=== PATIENT | female | born 1980 | race African-American/Black ===

== ENCOUNTER 2018-07-19 22:01 | Emergency (ER) | payer SELFPAY ==
[~2018-07-19] VITALS: Ht 175.3 cm; Wt 145.1 kg
[2018-07-19 22:15] VITALS: BP 124/87
[2018-07-21 10:29] LABS: Hepatitis B Surface Antibody Negative
[2018-07-21 12:47] LABS: Hepatitis B Surface Antigen Negative (Negative)
== END 2018-07-20 00:56 | disposition left against medical advice (07) ==
LOC: ER 22:01
DX: S61.431A Puncture wound without foreign body of right hand, initial encounter (principal); M79.671 Pain in right foot; Z53.21 Procedure and treatment not carried out due to patient leaving prior to being seen by health care provider; W50.3XXA Accidental bite by another person, initial encounter; Y93.89 Activity, other specified; Y92.89 Other specified places as the place of occurrence of the external cause; Y99.8 Other external cause status
CPT/HCPCS: 36415; 73130; 73630; 86703; 86706; 86803; 87340

== ENCOUNTER 2022-12-16 07:58 | Emergency (ER) | payer SELFPAY ==
[~2022-12-16] VITALS: Ht 172.7 cm; Wt 160.6 kg
[2022-12-16 08:28] LABS: Basophils # (auto) 0.1 10 ^3/uL (0-0.2); Basophils % (auto) 0.8 % (0.0-2.0); Eosinophils # (auto) 0.1 10 ^3/uL (0-0.8); Eosinophils % (auto) 2.2 % (0.0-7.0); Hematocrit 38.2 % (36.0-46.0); Hemoglobin 12.6 g/dL (12.2-16.2); Lymphocytes # (auto) 1.8 10 ^3/uL (0.4-5.4); Lymphocytes % (auto) 26.5 % (10.0-50.0); Mean Corpuscular Hemoglobin 27.4 pg (28.0-32.0); Mean Corpuscular Volume 82.9 fL (80.0-100.0); Monocytes # (auto) 0.8 10 ^3/uL (0-1.3); Monocytes % (auto) 12.4 % (0.0-12.0); Neutrophils # (auto) 3.9 10 ^3/uL (1.6-8.6); Neutrophils % (auto) 58.1 % (37.0-80.0); Nucleated Red Blood Cells % 0.1 %; Red Cell Distribution Width 14.3 % (11.8-14.3); White Blood Cell 6.7 10^3/uL (4.4-10.8)
[2022-12-16 09:00] LABS: Albumin 3.6 g/dL (3.4-5.0); Calcium 8.4 mg/dL (8.5-10.1); Potassium 4.2 mmol/L (3.5-5.1)
[2022-12-16 09:05] LABS: Bilirubin, Total 0.4 mg/dL (0.2-1.0); Total Protein 7.3 g/dL (6.4-8.2)
[2022-12-16] MEDS ORDERED: ASPirin 325 MG TAB PO ONE (11:30)
[2022-12-16 13:31] VITALS: BP 146/95
== END 2022-12-16 13:35 | disposition home or self-care (01) ==
LOC: ER 07:58
DX: R07.89 Other chest pain (principal)
CPT/HCPCS: 36415; 71046; 80053; 83880; 84484; 85025; 93005

== ENCOUNTER 2023-05-18 00:31 | Emergency (ER) | payer MEDICAID ==
[~2023-05-18] VITALS: Ht 175.3 cm; Wt 162.5 kg
[2023-05-18] MEDS ORDERED: HYDROcodone-ACET 10/325MG TAB PO ONE (01:15)
[2023-05-18 01:22] LABS: Basophils # (auto) 0 10 ^3/uL (0-0.2); Basophils % (auto) 0.5 % (0.0-2.0); Eosinophils # (auto) 0.1 10 ^3/uL (0-0.8); Eosinophils % (auto) 1.5 % (0.0-7.0); Hematocrit 43.4 % (36.0-46.0); Lymphocytes # (auto) 1.8 10 ^3/uL (0.4-5.4); Lymphocytes % (auto) 20.3 % (10.0-50.0); Mean Corpuscular Hemoglobin 27.4 pg (28.0-32.0); Mean Corpuscular Hgb Conc. 32.3 g/dL (32.0-36.0); Mean Corpuscular Volume 84.8 fL (80.0-100.0); Monocytes # (auto) 0.8 10 ^3/uL (0-1.3); Monocytes % (auto) 8.9 % (0.0-12.0); Neutrophils % (auto) 68.8 % (37.0-80.0); Red Blood Cells 5.12 10^6/uL (4.0-5.20); Red Cell Distribution Width 14.9 % (11.8-14.3); White Blood Cell 8.7 10^3/uL (4.4-10.8)
[2023-05-18 01:54] LABS: Alanine Aminotransferase 23 U/L (7-40); Albumin 5.1 g/dL (3.2-4.8); Alkaline Phosphatase 90 U/L (46-116); Anion Gap 9 (5-15); Aspartate Aminotransferase 19 U/L (13-40); BUN/Creatinine Ratio 16.1 (10.0-20.0); Bilirubin, Total 0.5 mg/dL (0.2-1.0); Blood Urea Nitrogen 23 mg/dL (9-23); Calcium 9.7 mg/dL (8.7-10.4); Carbon Dioxide 25 mmol/L (20-30); Chloride 104 mmol/L (98-107); Glucose 103 mg/dL (74-106); Potassium 3.7 mmol/L (3.5-5.1); Sodium 138 mmol/L (136-145); Total Protein 8.7 g/dL (5.7-8.2)
[2023-05-18] MEDS ORDERED: PROPOFOL 10 MG/ML 20 ML IV ONE (03:30)
[2023-05-18 03:35] VITALS: PULSE 86; RESP 18; TEMP 98.1; O2SAT 96
[2023-05-18] MEDS ORDERED: ACET-1304 PO (05:55)
[2023-05-18] MEDS ORDERED: METO-281 PO (05:55)
[2023-05-18] MEDS ORDERED: NAPR-746 PO (05:55)
[2023-05-18 07:30] VITALS: PULSE 94; RESP 16; O2SAT 97
[2023-05-18] MEDS ORDERED: ETOMIDATE (2MG/ML) 20ML VIAL IV ONE ×4 (07:45→09:00)
[2023-05-18] MEDS ORDERED: HYDROmorphone HCL 2 MG/ML VL/or syr ONE (08:38)
[2023-05-18] MEDS ORDERED: HYDROmorphone HCL 2 MG/ML VL/or syr IV ONE (08:45)
[2023-05-18] MEDS ORDERED: HYDROcodone-ACET 5/325MG TAB PO ONE (11:30)
[2023-05-18 11:32] VITALS: BP 166/102; RESP 13; O2SAT 94
[2023-05-18 11:51] LABS: INR 1.03 (0.9-1.15); Prothrombin Time 10.8 sec (9.3-11.8)
[2023-05-18 12:00] VITALS: PULSE 88
== END 2023-05-18 12:08 | disposition home or self-care (01) ==
LOC: ER 00:31
DX: S52.502A Unspecified fracture of the lower end of left radius, initial encounter for closed fracture (principal); Z79.899 Other long term (current) drug therapy; W18.39XA Other fall on same level, initial encounter; Y93.89 Activity, other specified; Y92.89 Other specified places as the place of occurrence of the external cause; Y99.8 Other external cause status
CPT/HCPCS: 25605; 36415; 71045; 73090; 73100; 73110; 80053; 85025; 85610; 96374; 99152; 99285; J1170; J2704

== ENCOUNTER 2023-11-17 22:16 | Emergency (ER) | payer SELFPAY ==
[~2023-11-17] VITALS: Ht 175.3 cm; Wt 163.2 kg
[~2023-11-17 22:16] MED LIST: ACET-1304 PO; METO-281 PO; NAPR-746 PO
[2023-11-17] MEDS: IPRATROPIUM BROM 0.5 MG/2.5ML INH SOL NEB ONE (23:08)
[2023-11-17] MEDS: ALBUTEROL SULF 2.5 MG/0.5ML(0.5%) NEB SOLN NEB ONE (23:08)
[2023-11-17 23:09] LABS: Basophils # (auto) 0 10 ^3/uL (0-0.2); Basophils % (auto) 0.3 % (0.0-2.0); Eosinophils # (auto) 0.1 10 ^3/uL (0-0.8); Hematocrit 37.8 % (36.0-46.0); Hemoglobin 12.3 g/dL (12.2-16.2); Lymphocytes # (auto) 0.9 10 ^3/uL (0.4-5.4); Lymphocytes % (auto) 13.3 % (10.0-50.0); Mean Corpuscular Hemoglobin 27.2 pg (28.0-32.0); Mean Corpuscular Hgb Conc. 32.6 g/dL (32.0-36.0); Mean Corpuscular Volume 83.3 fL (80.0-100.0); Monocytes # (auto) 0.7 10 ^3/uL (0-1.3); Monocytes % (auto) 9.9 % (0.0-12.0); Neutrophils # (auto) 5.3 10 ^3/uL (1.6-8.6); Neutrophils % (auto) 74.5 % (37.0-80.0); Red Blood Cells 4.53 10^6/uL (4.0-5.20); Red Cell Distribution Width 15.7 % (11.8-14.3); White Blood Cell 7.1 10^3/uL (4.4-10.8)
[2023-11-17 23:25] LABS: Alanine Aminotransferase 32 U/L (7-40); Albumin 3.9 g/dL (3.2-4.8); Alkaline Phosphatase 82 U/L (46-116); Anion Gap 6 (5-15); Aspartate Aminotransferase 28 U/L (13-40); BUN/Creatinine Ratio 8.2 (10.0-20.0); Blood Urea Nitrogen 7 mg/dL (9-23); Carbon Dioxide 27 mmol/L (20-30); Chloride 102 mmol/L (98-107); Glucose 103 mg/dL (74-106); Lipase 30 U/L (12-53); Potassium 3.6 mmol/L (3.5-5.1); Sodium 135 mmol/L (136-145)
[2023-11-17 23:26] LABS: Bilirubin, Total 0.5 mg/dL (0.2-1.0); Total Protein 7.2 g/dL (5.7-8.2)
[2023-11-18] MEDS: DexAMETHasone SOD PHOS 10MG/1ML VIAL INJ IM ONE (00:05)
[2023-11-18] MEDS ORDERED: AZIT500T66 PO (00:57)
[2023-11-18] MEDS ORDERED: ALBU108A5 IN (00:57)
[2023-11-18] MEDS: ALBUTEROL SULF 2.5 MG/0.5ML(0.5%) NEB SOLN NEB ONE (00:58)
[2023-11-18] MEDS: IPRATROPIUM BROM 0.5 MG/2.5ML INH SOL NEB ONE (00:58)
[2023-11-18] MEDS: AZITHROMYCIN 250 MG TAB PO ONE (01:13)
[2023-11-18 01:31] VITALS: BP 157/91; PULSE 118; RESP 18; TEMP 97.2; O2SAT 94
== END 2023-11-18 01:31 | disposition home or self-care (01) ==
LOC: ER 22:16
DX: J40 Bronchitis, not specified as acute or chronic (principal); R07.89 Other chest pain
CPT/HCPCS: 36415; 71045; 80053; 83690; 83880; 84484; 85025; 85379; 93005; 94640; 96372; 99285; J1100; J7644

== ENCOUNTER 2024-09-14 13:47 | Emergency (ER) | payer OTHER ==
[~2024-09-14] VITALS: Ht 172.7 cm; Wt 154.5 kg
[~2024-09-14 13:47] MED LIST changes: +ALBU108A5 IN; +AZIT500T66 PO
[2024-09-14 14:05] VITALS: BP 162/107; PULSE 95; RESP 17; O2SAT 95
--- NOTE | 2024-09-14 14:37 | ED.PDOC ---
History of Present Illness HPI Comments 44 y.o female presents to the ED for a chief complaint of generalized weakness x 1 week associated with fatigue, dry mouth and eyes x 1 month. 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 Patient denies any syncopal episodes, dizziness, lightheadedness, chest pain, nausea, vomiting, diarrhea, thyroid disease, or recent illness/sick contact exposure. Patient denies any medical history or allergies. Chief Complaint: General Weakness Time Seen by MD: 14:25 Primary Care Provider: NONE Reviewed Notes: Nurses Notes, Medications, Allergies Allergies: Coded Allergies: NO KNOWN ALLERGIES (Unverified , 05/11/15) Home Meds Active Scripts Albuterol Sulfate (Albuterol Sulfate Hfa) 108 Mcg/Act Aer, 108 MCG IN Q4HP PRN, #1 AER 1 Refill Prov:AYDEN SMITH PAC 11/18/23 Azithromycin (Azithromycin) 500 Mg Tab, 1 TAB PO DAILY, #5 TAB Prov:AYDEN SMITH PAC 11/18/23 Metoclopramide Hcl (Reglan) 10 Mg Tab, 10 MG PO TID, #20 TAB Prov:ARASH TOBAR MD 05/18/23 Acetaminophen (Tylenol Extra Strength) 500 Mg Tab, 500 MG PO TID, #30 TAB Prov:ARASH TOBAR MD 05/18/23 Naproxen (Naproxen) 500 Mg Tab, 500 MG PO BID, #30 TAB Prov:ARASH TOBAR MD 05/18/23 Information Source: Patient Mode of Arrival: Ambulatory Severity: Moderate Timing: Weeks Duration: Since onset Past Medical History PAST MEDICAL HISTORY: Denies Surgical History (Other): Left hip and left wrist HIRED HAND History: No Pertinent HIRED HAND History Family History Family History: Family hx of DM Social History Smoker: Non-Smoker Alcohol: Denies ETOH Use Drugs: Denies Drug Use Lives In: Home Constitutional: reports: fatigue, weakness; denies: chills, diaphoresis, fever, malaise, sweats, others EENTM: denies: blurred vision, double vision, ear bleeding, ear discharge, ear drainage, ear pain, ear ringing, eye pain, eye redness, hearing loss, mouth pain, mouth swelling, nasal discharge, nose bleeding, nose congestion, nose pain, photophobia, tearing, throat pain, throat swelling, voice changes, others Respiratory: denies: cough, hemoptysis, orthopnea, SOB at rest, shortness of breath, SOB with excertion, stridor, wheezing, others Cardiovascular: denies: chest pain, dizzy spells, diaphoresis, Dyspnea on exertion, edema, irregular heart beat, left arm pain, lightheadedness, palpitations, PND, syncope, others Gastrointestinal: denies: abdomen distended, abdominal pain, blood streaked bowels, constipated, diarrhea, dysphagia, difficulty swallowing, hematemesis, melena, nausea, poor appetite, poor fluid intake, rectal bleeding, rectal pain, vomiting, others Genitourinary: denies: abnormal vagina bleeding, burning, dyspareunia, dysuria, flank pain, frequency, hematuria, incontinence, pain, , vagina discharge, urgency, others Neurological: denies: dizziness, fainting, headache, left sided numbness, left sided weakness, numbness, paresthesia, pre-existing deficit, right sided numbness, right sided weakness, seizure, speech problems, tingling, tremors, weakness, others Musculoskeletal: denies: back pain, gout, joint pain, joint swelling, muscle pain, muscle stiffness, neck pain, others Integumetry: denies: bruises, change in color, change in hair/nails, dryness, laceration, lesions, lumps, rash, wounds, others Allergic/Immunocompromised: denies: Difficulty Healing, Frequent Infections, Hives, Itching, others Hematologic/Lymphatic: denies: anemia, blood clots, easy bleeding, easy bruising, swollen glands, others Endocrine: denies: excessive hunger, excessive sweating, excessive thirst, excessive urination, flushing, intolerance to cold, intolerance to heat, unexplained weight gain, unexplained weight loss, others Psychiatric: denies: anxiety, bipolar disorder, depression, hopeless, panic disorder, schizophrenia, sleepless, suicidal, others All Other Systems: Reviewed and Negative Physical Exam General Appearance: No Apparent Distress, Obese HEENT: Normal ENT Inspection, Pharynx Normal, TMs Normal Neck: Full Range of Motion, Non-Tender, Normal, Normal Inspection Respiratory: Chest Non-Tender, Lungs Clear, No Accessory Muscle Use, No Respiratory Distress, Normal Breath Sounds Cardiovascular: No Edema, No JVD, No Murmur, No Gallop, Normal Peripheral Pulses, Regular Rate/Rhythm Breast Exam: Deferred Gastrointestinal: No Organomegaly, Non Tender, No Pulsatile Mass, Normal Bowel Sounds, Soft Genitalia: Deferred Pelvic: Deferred Rectal: Deferred Extremities: No calf tenderness, Normal capillary refill, Normal inspection, Normal range of motion, Non-tender, No pedal edema Musculoskeletal : Apperance: Normal Neurologic: Alert, 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 Was a procedure done?: No Differential Dx Considerations may include: Electrolyte Imbalance, Dehydration, Diabetes X-Ray, Labs, Meds, VS Vital Signs Date Time Temp Pulse Resp B/P (MAP) Pulse Ox O2 Delivery O2 Flow Rate FiO2 09/14/24 14:05 98.0 95 17 162/107 (125) 95 Lab Test 09/14/24 14:45 Range/Units White Blood Count 5.8 4.4-10.8 10^3/uL Red Blood Count 4.85 4.0-5.20 10^6/uL Hemoglobin 12.8 12.2-16.2 g/dL Hematocrit 39.9 36.0-46.0 % Mean Corpuscular Volume 82.4 80.0-100.0 fL Mean Corpuscular Hemoglobin 26.5 L 28.0-32.0 pg Mean Corpuscular Hemoglobin Concent 32.2 32.0-36.0 g/dL Red Cell Distribution Width 15.8 H 11.8-14.3 % Platelet Count 243 140-450 10^3/uL Mean Platelet Volume 7.7 6.9-10.8 fL Neutrophils (%) (Auto) 65.4 37.0-80.0 % Lymphocytes (%) (Auto) 19.7 10.0-50.0 % Monocytes (%) (Auto) 12.4 H 0.0-12.0 % Eosinophils (%) (Auto) 2.2 0.0-7.0 % Basophils (%) (Auto) 0.3 0.0-2.0 % Neutrophils # (Auto) 3.8 1.6-8.6 10 ^3/uL Lymphocytes # (Auto) 1.1 0.4-5.4 10 ^3/uL Monocytes # (Auto) 0.7 0-1.3 10 ^3/uL Eosinophils # (Auto) 0.1 0-0.8 10 ^3/uL Basophils # (Auto) 0 0-0.2 10 ^3/uL Nucleated Red Blood Cells 0.1 % Sodium Level 140 136-145 mmol/L Potassium Level 4.1 3.5-5.1 mmol/L Chloride Level 106 98-107 mmol/L Carbon Dioxide Level 27 20-31 mmol/L Anion Gap 7 5-15 Blood Urea Nitrogen 9 9-23 mg/dL Creatinine 0.77 0.550-1.02 mg/dL Glomerular Filtration Rate Calc 99 >90 mL/min BUN/Creatinine Ratio 11.7 10.0-20.0 Serum Glucose 107 H 74-106 mg/dL Calcium Level 9.8 8.7-10.4 mg/dL Beta-Hydroxybutyric Acid 0.067 < 0.4 mmol/L The patient's CBC is within normal limits The chemistry panel is within normal limits. At this time we went to re-evaluate the patient but it seems that she has eloped from the department's Time of 1ST Reevaluation: 14:33 Reevaluation 1ST: Unchanged Patient Education/Counseling: Diagnosis, Treatment, Prognosis Family Education/Counseling: No Family Present Departure 1 Departure Time of Disposition: 18:57 Impression: Primary Impression: Generalized weakness Disposition: 07 LEFT AWOL/ELOPED Condition: Fair Critical Care Note Critical Care Time?: No Stability Stability form required: No Heart Score Heart Score: Heart Score Response (Comments) Value History N/A 0 EKG N/A 0 Age N/A 0 Risk Factors N/A 0 Troponin N/A 0 Total 0 I personally scribed for FRANCHESCA VARGAS MD ([email or web address]) on 09/14/24 at 14:37. Electronically submitted by Magalis Nicholas ([facility]). FRANCHESCA VARGAS MD Sep 14, 2024 14:37
[2024-09-14 15:10] LABS: Basophils # (auto) 0 10 ^3/uL (0-0.2); Eosinophils # (auto) 0.1 10 ^3/uL (0-0.8); Neutrophils # (auto) 3.8 10 ^3/uL (1.6-8.6)
[2024-09-14 15:11] LABS: Basophils % (auto) 0.3 % (0.0-2.0); Eosinophils % (auto) 2.2 % (0.0-7.0); Hematocrit 39.9 % (36.0-46.0); Hemoglobin 12.8 g/dL (12.2-16.2); Lymphocytes # (auto) 1.1 10 ^3/uL (0.4-5.4); Lymphocytes % (auto) 19.7 % (10.0-50.0); Mean Corpuscular Hemoglobin 26.5 pg (28.0-32.0); Mean Corpuscular Hgb Conc. 32.2 g/dL (32.0-36.0); Mean Corpuscular Volume 82.4 fL (80.0-100.0); Monocytes # (auto) 0.7 10 ^3/uL (0-1.3); Monocytes % (auto) 12.4 % (0.0-12.0); Neutrophils % (auto) 65.4 % (37.0-80.0); Nucleated Red Blood Cells % 0.1 %; Platelet Count (auto) 243 10^3/uL (140-450); Red Blood Cells 4.85 10^6/uL (4.0-5.20); Red Cell Distribution Width 15.8 % (11.8-14.3); White Blood Cell 5.8 10^3/uL (4.4-10.8)
[2024-09-14 15:13] LABS: Chloride 106 mmol/L (98-107); Potassium 4.1 mmol/L (3.5-5.1); Sodium 140 mmol/L (136-145)
[2024-09-14 15:14] LABS: Anion Gap 7 (5-15); Carbon Dioxide 27 mmol/L (20-31)
[2024-09-14 15:15] LABS: Calcium 9.8 mg/dL (8.7-10.4)
[2024-09-14 15:19] LABS: BUN/Creatinine Ratio 11.7 (10.0-20.0); Blood Urea Nitrogen 9 mg/dL (9-23)
[2024-09-14 15:20] LABS: Glucose 107 mg/dL (74-106)
== END 2024-09-14 18:30 | disposition left against medical advice (07) ==
LOC: ER 13:54
DX: R53.1 Weakness (principal); R53.83 Other fatigue; R68.2 Dry mouth, unspecified
CPT/HCPCS: 36415; 80048; 82010; 85025

== ENCOUNTER 2025-02-18 04:59 | Emergency (ER) | payer OTHER ==
[~2025-02-18] VITALS: Ht 175.3 cm; Wt 150.0 kg
[2025-02-18 05:00] VITALS: BP 155/99; PULSE 79; RESP 18; TEMP 98.8; O2SAT 97
[2025-02-18] MEDS ORDERED: IBUP-1456 PO (05:16)
[2025-02-18] MEDS ORDERED: AMOX875T4 PO (05:16)
--- NOTE | 2025-02-18 05:16 | ED.PDOC ---
Eye-HPI HPI Comments 44-year-old female presents to ER with complaints of toothache x1 day. Patient reports that she woke up with 10/10 right upper toothache pain with radiation towards right side of forehead at 2:00 a.m. prior to arrival to ER. Notes that she did use Orajel without relief. Patient presents to ER ambulatory on arrival , with steady gait, in mild distress. Denies fever, skin changes, n/v or any further symptoms/complaints Chief Complaint: Tooth Pain Time Seen by MD: 05:01 Primary Care Provider: UNKNOWN Reviewed Notes: Nurses Notes, Medications, Allergies Allergies: Coded Allergies: NO KNOWN ALLERGIES (Unverified , 05/11/15) Home Meds Active Scripts Ibuprofen (Ibuprofen) 800 Mg Tab, 1 TAB PO TID PRN, #30 TAB 0 Refills Prov:KEIRA DOBBINS 02/18/25 Amoxicillin & Pot Clavulanate (Amoxicillin/Potassium Cla) 875 Mg Tab, 1 TAB PO BID for 7 Days, #14 TAB 0 Refills Prov:KEIRA DOBBINS 02/18/25 Albuterol Sulfate (Albuterol Sulfate Hfa) 108 Mcg/Act Aer, 108 MCG IN Q4HP PRN, #1 AER 1 Refill Prov:AYDEN SMITH PAC 11/18/23 Azithromycin (Azithromycin) 500 Mg Tab, 1 TAB PO DAILY, #5 TAB Prov:AYDEN SMITH PAC 11/18/23 Metoclopramide Hcl (Reglan) 10 Mg Tab, 10 MG PO TID, #20 TAB Prov:ARASH TOBAR MD 05/18/23 Acetaminophen (Tylenol Extra Strength) 500 Mg Tab, 500 MG PO TID, #30 TAB Prov:ARASH TOBAR MD 05/18/23 Naproxen (Naproxen) 500 Mg Tab, 500 MG PO BID, #30 TAB Prov:ARASH TOBAR MD 05/18/23 Information Source: Patient Mode of Arrival: Ambulatory Past Medical History PAST MEDICAL HISTORY: Denies Surgical History (Other): Left hip surgery Left wrist surgery ELECTRICAL DESIGN TECHNOLOGIST History: No Pertinent ELECTRICAL DESIGN TECHNOLOGIST History Family History Family History: Family hx of DM Social History Smoker: Non-Smoker Alcohol: Denies ETOH Use Drugs: Denies Drug Use Lives In: Home Constitutional: denies: chills, diaphoresis, fatigue, fever, malaise, sweats, weakness, others EENTM: reports: others (As stated in HPI) Respiratory: denies: cough, hemoptysis, orthopnea, SOB at rest, shortness of breath, SOB with excertion, stridor, wheezing, others Cardiovascular: denies: chest pain, dizzy spells, diaphoresis, Dyspnea on exertion, edema, irregular heart beat, left arm pain, lightheadedness, palpitations, PND, syncope, others Gastrointestinal: denies: abdomen distended, abdominal pain, blood streaked bowels, constipated, diarrhea, dysphagia, difficulty swallowing, hematemesis, melena, nausea, poor appetite, poor fluid intake, rectal bleeding, rectal pain, vomiting, others Genitourinary: denies: abnormal vagina bleeding, burning, dyspareunia, dysuria, flank pain, frequency, hematuria, incontinence, pain, , vagina discharge, urgency, others Neurological: denies: dizziness, fainting, headache, left sided numbness, left sided weakness, numbness, paresthesia, pre-existing deficit, right sided numbness, right sided weakness, seizure, speech problems, tingling, tremors, weakness, others Musculoskeletal: denies: back pain, gout, joint pain, joint swelling, muscle pain, muscle stiffness, neck pain, others Integumetry: denies: bruises, change in color, change in hair/nails, dryness, laceration, lesions, lumps, rash, wounds, others Allergic/Immunocompromised: denies: Difficulty Healing, Frequent Infections, Hives, Itching, others Hematologic/Lymphatic: denies: anemia, blood clots, easy bleeding, easy bruising, swollen glands, others Endocrine: denies: excessive hunger, excessive sweating, excessive thirst, excessive urination, flushing, intolerance to cold, intolerance to heat, unexplained weight gain, unexplained weight loss, others Psychiatric: denies: anxiety, bipolar disorder, depression, hopeless, panic disorder, schizophrenia, sleepless, suicidal, others Physical Exam General Appearance: Mild Distress, Obese HEENT: PERRL/EOMI, Pharynx Normal, TMs Normal, Other (Broken right upper wisdom tooth noted with mild surrounding gum swelling/erythema, no bleeding/drainage noted. 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 Was a procedure done?: No Sedation Sedation?: No EENT DIFF Eye: N/A Mouth: Thrush, Other (Dental abscess, Juan's angina) X-Ray, Labs, Meds, VS Vital Signs Date Time Temp Pulse Resp B/P (MAP) Pulse Ox O2 Delivery O2 Flow Rate FiO2 02/18/25 05:00 98.8 79 18 155/99 97 98.8 Rocephin 1 g IM ordered Hurricane spray ordered, patient educated on proper use/dosage Patient had improvement in symptoms and in no distress prior to discharge Advised to follow up with PCP and dentist in 1-2 days Patient verbalized understanding and agreeable with current plan of care Advised to return to ER immediately if symptoms worsen Time of 1ST Reevaluation: 05:01 Reevaluation 1ST: N/A Patient Education/Counseling: Diagnosis, Treatment, Prognosis, Need For Follow Up Family Education/Counseling: No Family Present SEPSIS Sepsis Screen Date sepsis recognized/suspect: Feb 18, 2025 Time Sepsis recognized/suspect: 0504 Recent Procedure: No On Antibiotic Therapy: No Respiratory Rate >20: No Heart Rate >90: No Temp<36 C (96.8 F) or >38.3 C: No SBP <90 or MAP <65 mmHG: No New Acute Mental Status Change: No Is the patient on CPAP, BIPAP,: No Vital Signs Date Time Temp Pulse Resp B/P (MAP) Pulse Ox O2 Delivery O2 Flow Rate FiO2 02/18/25 05:00 98.8 79 18 155/99 97 98.8 Departure 1 Departure Time of Disposition: : Impression: Primary Impression: Broken tooth Qualified Codes: S02.5XXA - Fracture of tooth (traumatic), initial encounter for closed fracture Additional Impression: Dental infection Disposition: HOME / SELF CARE / HOMELESS Condition: Stable e-Prescriptions Ibuprofen (Ibuprofen) 800 Mg Tab 1 TAB PO TID PRN, #30 TAB 0 Refills Prov: KEIRA DOBBINS 02/18/25 Amoxicillin & Pot Clavulanate (Amoxicillin/Potassium Cla) 875 Mg Tab 1 TAB PO BID for 7 Days, #14 TAB 0 Refills Prov: KEIRA DOBBINS 02/18/25 Discharged With: Self Critical Care Note Critical Care Time?: No Stability Stability form required: No Heart Score Heart Score: Heart Score Response (Comments) Value History N/A 0 EKG N/A 0 Age N/A 0 Risk Factors N/A 0 Troponin N/A 0 Total 0 KEIRA DOBBINS Feb 18, 2025 05:16
[2025-02-18] MEDS: BENZOCAINE (DENTAL) 20 % SPRAY 60ML MT ONE (05:23)
[2025-02-18] MEDS: cefTRIAXone SOD 1,000 MG VL IM ONE (05:28)
== END 2025-02-18 05:26 | disposition home or self-care (01) ==
LOC: ER 05:03
DX: S02.5XXA Fracture of tooth (traumatic), initial encounter for closed fracture (principal); K04.7 Periapical abscess without sinus; Z98.890 Other specified postprocedural states; X58.XXXA Exposure to other specified factors, initial encounter; Y93.89 Activity, other specified; Y92.89 Other specified places as the place of occurrence of the external cause; Y99.8 Other external cause status
CPT/HCPCS: 96372; 99283; J0696